=== PATIENT | female | born 1995 | race Caucasian/White ===

== ENCOUNTER → 2019-06-09 | Emergency (ER) | payer BC, MEDICAID ==
[~2019-06-09] VITALS: Ht 154.9 cm; Wt 65.8 kg
[~2019-06-09] MED LIST: CARISOPRODOL 350 MG TAB PO ONE; KETOROLAC TROMETH 15 mg/ml 1ML VL IV ONE; KETOROLAC TROMETH 30 MG/ML 1ML VIAL ONE; MORPHINE SULF INJ 2 MG/ML SYRINGE 1ML IV ONE; ONDANSETRON HCL 4 MG/2 ML VIAL IV ONE; SODIUM CHLORIDE 0.9% 1,000 ML IV ONE
[2019-06-09 13:20] LABS: Urine WBC None Seen /hpf (0 - 5)
[2019-06-09 13:25] LABS: Urine Bacteria FEW /hpf (None Seen); Urine Blood Negative /uL (Negative); Urine Mucus FEW (None Seen); Urine Specific Gravity 1.017 (1.001-1.035)
[2019-06-09 13:38] LABS: Basophils # (auto) 0.1 10 ^3/uL (0-0.2); Basophils % (auto) 0.8 % (0.0-2.0); Eosinophils # (auto) 0.3 10 ^3/uL (0-0.8); Eosinophils % (auto) 3.1 % (0.0-7.0); Hemoglobin 14.5 g/dL (12.2-16.2); Lymphocytes # (auto) 2.3 10 ^3/uL (0.4-5.4); Mean Corpuscular Hemoglobin 28.3 pg (28.0-32.0); Mean Corpuscular Volume 85.6 fL (80.0-100.0); Monocytes # (auto) 0.7 10 ^3/uL (0-1.3); Monocytes % (auto) 6.8 % (0.0-12.0); Neutrophils # (auto) 6.6 10 ^3/uL (1.6-8.6); Neutrophils % (auto) 66.3 % (37.0-80.0); Nucleated Red Blood Cells % 0.1 %; Platelet Count (auto) 227 10^3/uL (140-450); Red Blood Cells 5.14 10^6/uL (4.0-5.20); Red Cell Distribution Width 14.8 % (11.8-14.3); White Blood Cell 9.9 10^3/uL (4.4-10.8)
[2019-06-09 14:14] LABS: Albumin 4.2 g/dL (3.4-5.0); Calcium 8.9 mg/dL (8.5-10.1); Potassium 3.8 mmol/L (3.5-5.1)
[2019-06-09 14:23] LABS: Bilirubin, Total 0.3 mg/dL (0.2-1.0); Total Protein 8.3 g/dL (6.4-8.2)
[2019-06-09 15:16] VITALS: BP 105/76
== END | disposition home or self-care (01) ==
LOC: ER 12:42
DX: S29.011A Strain of muscle and tendon of front wall of thorax, initial encounter (principal); R10.11 Right upper quadrant pain; X58.XXXA Exposure to other specified factors, initial encounter; Y93.89 Activity, other specified; Y92.89 Other specified places as the place of occurrence of the external cause; Y99.8 Other external cause status; Z88.6 Allergy status to analgesic agent; Z32.02 Encounter for pregnancy test, result negative; Z88.8 Allergy status to other drugs, medicaments and biological substances
CPT/HCPCS: 36415; 71046; 74176; 80053; 81001; 81025; 83690; 85025; 96374; 96375; 99285; J1885; J2270; J2405; J7030

== ENCOUNTER 2021-01-21 07:09 | Emergency (ER) | payer BC, MEDICAID ==
[~2021-01-21] VITALS: Ht 154.9 cm; Wt 61.2 kg
[2021-01-21 07:37] VITALS: BP 125/70
[2021-01-21] MEDS ORDERED: LIDO2SOL23 PO (07:39)
[2021-01-21] MEDS ORDERED: AZIT250T8 PO (07:39)
[2021-01-21] MEDS ORDERED: BENZ150C4 PO (08:07)
== END 2021-01-21 08:18 | disposition home or self-care (01) ==
LOC: ER 07:09
DX: J06.9 Acute upper respiratory infection, unspecified (principal); Z88.6 Allergy status to analgesic agent
CPT/HCPCS: 71046

== ENCOUNTER 2021-07-21 19:34 | Emergency (ER) | payer BC, MEDICAID ==
[~2021-07-21] VITALS: Ht 154.9 cm; Wt 68.0 kg
[~2021-07-21 19:34] MED LIST changes: +AZIT250T8 PO; +BENZ150C4 PO; -CARISOPRODOL 350 MG TAB PO ONE; -KETOROLAC TROMETH 15 mg/ml 1ML VL IV ONE; -KETOROLAC TROMETH 30 MG/ML 1ML VIAL ONE; +LIDO2SOL23 PO; -MORPHINE SULF INJ 2 MG/ML SYRINGE 1ML IV ONE; -ONDANSETRON HCL 4 MG/2 ML VIAL IV ONE; -SODIUM CHLORIDE 0.9% 1,000 ML IV ONE
[2021-07-21 19:35] VITALS: BP 165/86
== END 2021-07-22 02:14 | disposition left against medical advice (07) ==
LOC: ER 19:34
DX: M25.572 Pain in left ankle and joints of left foot (principal); Z53.21 Procedure and treatment not carried out due to patient leaving prior to being seen by health care provider
CPT/HCPCS: 73610

== ENCOUNTER 2021-08-12 19:17 | Emergency (ER) | payer BC, MEDICAID ==
[2021-08-12] MEDS ORDERED: ACETAMINOPHEN 325 MG TAB PO ONE (19:45)
== END 2021-08-12 20:17 | disposition left against medical advice (07) ==
LOC: ER 19:17
DX: R10.9 Unspecified abdominal pain (principal); R05.9 Cough, unspecified; Z53.21 Procedure and treatment not carried out due to patient leaving prior to being seen by health care provider